=== PATIENT | male | born 1950 | race Caucasian/White ===

== ENCOUNTER → 2017-08-10 | Outpatient (CLI) | payer OTHER, MEDICARE | LOC: CAT 10:04 | DX: J44.9 Chronic obstructive pulmonary disease, unspecified (principal); J84.9 Interstitial pulmonary disease, unspecified ==

== ENCOUNTER 2017-10-30 16:12 | Inpatient (IN) | payer OTHER, MEDICARE ==
[~2017-10-30] VITALS: Ht 177.8 cm; Wt 142.4 kg
--- NOTE | ~2017-10-30 | HC ---
[facility] [place] [address] CONSULTATION Name: SHANNAN CALDERA Room #: 213-P ADM IN M.R.#: [id number] Admission: 10/30/17 Attend Phys: Dax Watkins MD Discharge: Date of : 48 Report #: [id number] THIS REPORT FOR: //name// CC: Nilda Watkins MD DATE OF SERVICE: 10/31/2017 REFERRING PROVIDER: Dr. Dax Watkins. CHIEF COMPLAINT: Shortness of breath and hypoxemia. HISTORY OF PRESENT ILLNESS: Our group was asked to see the patient in consultation while hospitalized at [facility], well known to me from previous office visits. He is a pleasant 67-year-old male with a history of some interstitial lung disease, shortness of breath, hypoxemia, which we have been evaluating. Labs have been significant for an elevated IgE. He has also had difficulty with renal insufficiency, managed by Dr. Barrios. Because of the multitude of problems and ongoing shortness of breath, he had been self-medicating with prednisone he had been getting from [place], taking about 20 mg 3 times a week. He notes improved symptoms typically with this. However, because of persistent symptoms and a multitude of abnormalities, went to [facility] for further evaluation. An exact etiology of his disease was not elicited. The patient did undergo a Rheumatology evaluation at the end of that stay and there was some concern for an inflammatory arthritis and films of the hands were requested. The patient does not have significant cough or sputum, but has significant exertional dyspnea. Noted yesterday desaturation very quickly with activity of oxygen saturations were about 76. The patient did note in the last month or so a decrease in his diuretic use at the request of his die holder. No fevers, chills or sweats. Some increased lower extremity edema noted. The patient has markedly increased dose of prednisone up to 60 mg daily with no significant improvement in symptoms. PAST MEDICAL HISTORY: 1. Chronic venous insufficiency. 2. Sleep apnea. 3. Chronic renal insufficiency. 4. Mild pulmonary fibrosis. 5. Hypertension. 6. Hyperlipidemia. 7. Chronic obstructive pulmonary disease. 8. Diastolic congestive heart failure. 9. Chronic renal insufficiency. [facility] [address] [place] [address] CONSULTATION Name: SHANNAN CALDERA Room #: 213-P [facility] IN M.R.#: [id number] Admission: 10/30/17 Attend Phys: Dax Watkins MD Discharge: Date of : 48 Report #: [id number] 10. Atrial fibrillation. MEDICATIONS: Include Tylenol, Bumex, bupropion, Temovate cream, Pradaxa, diltiazem, Advair, levalbuterol, Zaroxolyn, Remeron, Singulair, multivitamin, and prednisone. FAMILY HISTORY: Significant for cancer in his mother and father at 64. SOCIAL HISTORY: Ex-smoker, quitting in 1978. Occasional alcohol consumption, usually daily beverage, sometimes 2 or 3 per day. REVIEW OF SYSTEMS: CONSTITUTIONAL: No fever, chills, sweats. ENT: No upper respiratory congestion, some hoarseness. CARDIOVASCULAR: No chest pains, palpitations noted. Atrial fibrillation. GASTROINTESTINAL: No nausea, vomiting or abdominal pain. GENITOURINARY: No dysuria, no frequency or hematuria. INTEGUMENT: Denies any new rash. MUSCULOSKELETAL: Some increased lower extremity edema. PHYSICAL EXAMINATION: VITAL SIGNS: Afebrile, pulse 70s, respiratory rate 18, blood pressure 138/56, oxygen saturation 95% on 4 liters nasal cannula. GENERAL: This is an obese, cushingoid appearing elderly male, in no distress, resting comfortably in the chair. ENT: Clear oropharynx, Mallampati 3 airway. NECK: Supple, no lymphadenopathy. LUNGS: Diminished with inspiratory crackles noted [address] CARDIOVASCULAR: Heart was irregular. No murmurs noted. ABDOMEN: Obese, soft, nontender. EXTREMITIES: With 2+ lower extremity edema with chronic venous stasis changes noted. LABORATORY DATA: White blood cell count 7.8, hemoglobin 10, hematocrit 32, platelet count of 123. Sodium 143, potassium 3.1, chloride 101, bicarbonate 30, BUN 63, creatinine 1.7, glucose 125. ProBNP 1263. Arterial blood gas done on 4 liters showed pH 7.44, pCO2 of 42, pO2 of 95, bicarbonate 27. IMPRESSION: 1. Severe dyspnea, likely multifactorial. The patient has an ongoing pulmonary process with a combination of obstructive and restrictive lung disease, some of this related to interstitial findings. The patient also with a noted elevated IgE; however, the patient did not improve with systemic steroids at high dose arguing against a pulmonary process at this time. The patient does have complaints of arthritis in his hands and there was some concern at [facility] about inflammatory arthropathy. [facility] [address] [place] [address] CONSULTATION Name: SHANNAN CALDERA Room #: 213-P ADM IN [place].R.#: [id number] Admission: 10/30/17 Attend Phys: Dax Watkins MD Discharge: Date of : 48 Report #: [id number] 2. Diastolic congestive heart failure, acute on chronic. 3. Chronic lower extremity edema. 4. Chronic renal insufficiency. 5. Interstitial pulmonary fibrosis, unclear significance or etiology. 6. Obstructive sleep apnea. 7. Atrial fibrillation. 8. Chronic anticoagulation. 9. Chronic steroid use. SUGGESTIONS: 1. Decrease steroids. 2. Rheumatology consult. 3. Nephrology consult. 4. Continue with diuresis. 5. Continue with bronchodilators. 6. No antibiotics at this time. 7. Diuresis as tolerated. 8. We will continue to follow. Thank you for requesting our suggestions. <ELECTRONICALLY SIGNED> By: Dipesh Pickens MD 11/03/17 1453 1057 1457 Dipesh Pickens MD /nt
--- NOTE | ~2017-10-30 | EKG ---
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
--- NOTE | ~2017-10-30 | CATHLAB ---
[facility] [address] [place] [address] INVASIVE PROCEDURE REPORT Name: SHANNAN CALDERA Room #: 213-P DIS IN M.R.#: [id number] Admission: 10/30/17 Attend Phys: Dax Watkins MD Discharge: 11/04/17 Date of : 48 Date of Service: 11/08/17 1328 Report #: [id number] THIS REPORT FOR: //name// APPROVED REPORT Patient Details Patient Status: In-Patient Room #: The patient is a 67 year-old male Event Personnel Miguel Angel Gifford Pattern Assembler, Anastasiya Cowan RTR, KST OPERATOR Monitor, Franko Anguiano Penny, Wes RN Procedures Performed Art Access - R femoral artery* Joel Access - R femoral vein [id number] Initial Mod Sed Same Phys/QHP Gr5y [id number] Mod Sed Same Phys/QHP Ea [id number] Right and Left Heart Cath w/or w/o Coronarie [id number] [facility] Hemostasis with Manual pressure Procedure Narrative The patient was brought urgently to the Cardiac Catheterization Laboratory and was prepped and draped in a sterile manner. The Right Groin^ was infiltrated with 1% Lidocaine subcutaneous anesthesia. A PINNACLE 4FR Sheath #[id number] sheath was inserted into the RFA^. Coronary angiography was performed using coronary diagnostic catheters. The right coronary system was accessed and visualized with a JR 4 catheter. The left coronary system was accessed and visualized with a JL 4 catheter. The left ventricle was accessed and visualized with a Pigtail catheter. Left ventricular/Aortic Valve gradient assessed via catheter pullback. Hemostasis was obtained with manual pressure following sheath removal without any complications. The patient tolerated the procedure well and there were no complications associated with the procedure. There was no hematoma. Intraoperative Conscious Sedation Sedation start time: 13:32 Case end Time: 14:08 Versed 2 mg Fluoro Time: 13.42 minutes Dose: DAP 70193.90 cGycm2 1525 mGy Contrast Type and Amount: Omnipaque 50 ml Coronary Angiography The patient's coronary anatomy is right dominant. [facility] [address] [place] [address] INVASIVE PROCEDURE REPORT Name: SHANNAN CALDERA Room #: 213-P [facility] IN M.R.#: [id number] Admission: 10/30/17 Attend Phys: Dax Watkins MD Discharge: 11/04/17 Date of : 48 Date of Service: 11/08/17 1328 Report #: [id number] Diagnostic Cath Left Main Left main is normal origin and caliber bifurcates left anterior descending left circumflex. The left main is free of high-grade disease it is short in length LAD Moderate caliber type II vessel which courses anteriorly in the anterior interventricular sulcus. There is a trifurcation of the first septal and first diagonal which is a moderate to caliber vessel in the LAD proper. There is a mild narrowing but does not appear to be significant and is not flow-limiting. The LAD proper then continues towards the apex tapering rapidly as it terminates in the apex is a small bifurcating vessel Diagonal 1 Moderate caliber vessel without significant high-grade lesion is noted as it courses along the anterolateral wall Circumflex Large-caliber vessel of normal origin and gives rise to a early small marginal branch which is free of high-grade disease. A small second marginal branch in the lateral wall and a posterior wall marginal branch. It then terminates is a small-caliber vessel prior to reaching the crux of the heart no significant obstructive lesions OM1 Small-caliber no obstruction noted OM2 Small caliber short vessel without significant high-grade disease OM3 Moderate caliber vessel tortuous in its course without significant obstructive lesions noted Right Coronary Large-caliber vessel of normal origin courses in the AV groove posteriorly significant obstructive lesions. At the crux of the heart and gives rise to posterior descending artery and continues on as a posterior wall branch which are smaller in caliber R PDA Moderate caliber long vessel which courses in the posterior interventricular sulcus towards the apex and terminates as a smaller caliber vessel at the apex. No lesions are identified Left Ventriculography Left Ventriculography was not performed. Hemodynamics The right atrial mean pressure is 21 mmHg. The right ventricular pressure is 65/8 mmHg. The pulmonary artery pressure is 69/24 mmHg with a mean of 40 mmHg. The mean pulmonary capillary wedge pressure is 29 mmHg. The aortic pressure is 146/76 mmHg with a mean of 103 mmHg. The left ventricular pressure is 146/18 mmHg with a mean of mmHg. The left ventricular end diastolic pressure is 25 mmHg. The cardiac output using thermo method is 6.30 L/min. The cardiac index using thermo method is 2.49 L/min/m2. [facility] [address] [place] [address] INVASIVE PROCEDURE REPORT Name: SHANNAN CALDERA Room #: 213-P DIS IN M.R.#: [id number] Admission: 10/30/17 Attend Phys: Dax Watkins MD Discharge: 11/04/17 Date of : 48 Date of Service: 11/08/17 1328 Report #: [id number] Conclusion 1. Essentially normal coronary arteries 2. Abnormal hemodynamics with elevated pulmonary pressures and significant V wave identified Recommendations Cardiac Risk Reduction Program Would benefit from a vasodilatation study to assess pulmonary hypertension and the extent of reversibility <ELECTRONICALLY SIGNED> By: Miguel Angel Gifford MD 11/08/178 27 27 Miguel Angel Gifford MD /INF
--- NOTE | ~2017-10-30 | 2DMMODE ---
[facility] [address] [place] [address] 2 D/M-MODE ECHOCARDIOGRAM Name: SHANNAN CALDERA Room #: 213-P ADM IN M.R.#: [id number] Admission: 10/30/17 Attend Phys: Dax Watkins MD Discharge: Date of : 48 Date of Service: 10/31/17 1346 Report #: [id number] THIS REPORT FOR: //name// APPROVED REPORT Study performed: 10/31/2017 11:08:30 EXAM: Comprehensive 2D, Doppler, and color-flow Echocardiogram Patient Location: Bedside Room #: 213 Status: routine BSA: 2.82 HR: 72 bpm BP: 138/56 mmHg Other Information Study Quality: Adequate Indications Congestive Heart Failure COPD Atrial Fibrillation Dyspnea Hypertension/HDD 2D Dimensions RVDd: 43.70 mm LVEF(%): 43.97 (>50%) IVSd: 11.44 (7-11mm) LVOT Diam: 21.21 (18-24mm) LVDd: 54.60 mm PWd: 11.27 (7-11mm) Ascending Ao: 35.06 (22-36mm) LVDs: 42.59 (25-40mm) Aortic Root: 28.59 mm IVC: 28.00 mm Salmeron's LVEF: 43.97 % Volumes Left Atrial Volume (Systole) Single Plane 4CH: 71.07 mL Single Plane 2CH: 82.94 mL LA ESV Index: 29.00 mL/m2 Aortic Valve AoV Peak Kirt.: 1.72 m/s AO Peak Gr.: 11.80 mmHg LVOT Max P.15 mmHg LVOT Max V: 1.59 m/s PREM Vmax: 3.27 cm2 [facility] [place] [place] [address] 2 D/M-MODE ECHOCARDIOGRAM Name: SHANNAN CALDERA Room #: 213-P ADM IN M.R.#: [id number] Admission: 10/30/17 Attend Phys: Dax Watkins MD Discharge: Date of : 48 Date of Service: 10/31/17 1346 Report #: [id number] Mitral Valve MV Decel. Time: 207.23 ms MV E Max Kirt.: 1.46 m/s Pulmonary Valve PV Peak Kirt.: 1.48 m/s PV Peak Gr.: 8.76 mmHg Tricuspid Valve TR Peak Kirt.: 3.26 m/s RAP Estimate: 15.00 mmHg TR Peak Gr.: 42.46 mmHg PA Pressure: 58.00 mmHg Left Ventricle Left ventricle is borderline dilated. There is normal left ventricular wall thickness. The overall left ventricular systolic function appears normal. LVEF is 55-60%. This study is not technically sufficient to allow evaluation of the LV diastolic function due to atrial fibrillation. Right Ventricle Right ventricle is dilated. The right ventricular systolic function is normal. Atria Left atrium is at the upper limits of normal. Right atrium is moderately dilated. Aortic Valve The aortic valve is normal in structure. Trace aortic regurgitation. There is no aortic valvular stenosis. Mitral Valve The mitral valve is normal in structure. Mild to moderate mitral regurgitation. No evidence of mitral valve stenosis. Tricuspid Valve The tricuspid valve is normal in structure. Mild tricuspid regurgitation. PAP is estimated at 58 mmHg. Pulmonic Valve Pulmonic valve is not well visualized. There is no pulmonic valvular regurgitation noted. Great Vessels The aortic root is normal in size. IVC is dilated and collapses <50% with inspiration. [facility] [address] [place] [address] 2 D/M-MODE ECHOCARDIOGRAM Name: SHANNAN CALDERA Room #: 213-P [facility] IN M.R.#: [id number] Admission: 10/30/17 Attend Phys: Dax Watkins MD Discharge: Date of : 48 Date of Service: 10/31/17 1346 Report #: [id number] Pericardium There is no pericardial effusion. <Conclusion> The overall left ventricular systolic function appears normal. LVEF is 55-60%. Right ventricle is dilated. Both atria are dilated The aortic valve is normal in structure. Trace aortic regurgitation, no stenosis. The mitral valve is normal in structure. Mild to moderate mitral regurgitation. Mild tricuspid regurgitation. Pulmonary artery pressure estimated at 58 mmHg. There is no pericardial effusion. <ELECTRONICALLY SIGNED> By: Lion Lr MD, FAC 10/31/17 1346 1346 1346 Lion Lr MD, FAC /INF
--- NOTE | ~2017-10-30 | HC ---
[facility] [place] [address] CONSULTATION Name: SHANNAN CALDERA Room #: 213-P ADM IN M.R.#: [id number] Admission: 10/30/17 Attend Phys: Dax Watkins MD Discharge: Date of : 48 Report #: [id number] THIS REPORT FOR: //name// CC: Dipesh Watkins REASON FOR CONSULTATION: Elevated creatinine. REASON FOR PRESENTATION: Shortness of breath. HISTORY OF PRESENT ILLNESS: A 67-year-old with past medical history of chronic kidney disease. He is also known to have some sort of lung disease, presumed to be interstitial lung disease. He sees Dr. Barrios from [facility] and was told that his creatinine is anywhere from 1.5 to 1.7. He self-medicates himself. This includes taking prednisone that he is getting from [place]. He had some issues with shortness of breath over the last couple of weeks. He went up to [facility] during this period of time and was told that his kidney function had worsened. He used to 2 diuretics. They cut down the doses of his medications, and after which, he started to have significant shortness of breath. No fever or chills. He does have chronic lower extremity edema. He increased the dose of his prednisone; however, because of the worsening of the symptoms, he decided to present for further evaluation and management. He does seem to be at his baseline from the renal perspective. He has long-standing hypertension. He is not diabetic. No nonsteroidal anti-inflammatory medications. PAST MEDICAL HISTORY: 1. Hypertension. 2. Diastolic heart failure. 3. Chronic kidney disease. 4. Pulmonary fibrosis. 5. Obstructive sleep apnea. 6. Chronic venous stasis changes. MEDICATIONS: 1. Zaroxolyn. 2. Singulair. 3. Pradaxa. 4. Bumex. 5. Tylenol. FAMILY HISTORY: Significant for cancer. SOCIAL HISTORY: Ex-smoker. No drug or alcohol abuse. REVIEW OF SYSTEMS: GENERAL: No fever or chills. [facility] [address] [place] [address] CONSULTATION Name: SHANNAN CALDERA Room #: 213-[facility] IN M.R.#: [id number] Admission: 10/30/17 Attend Phys: Dax Watkins MD Discharge: Date of : 48 Report #: [id number] CARDIOVASCULAR: As per the history of present illness. PULMONARY: As per the history of present illness. GASTROINTESTINAL: No nausea or vomiting. GENITOURINARY: No frequency, no urgency. SKIN: Chronic venous stasis changes. PHYSICAL EXAMINATION: GENERAL: He is alert, oriented, in no apparent distress. VITAL SIGNS: Pulse is 70, respiratory rate is 18 and blood pressure is 130/56. HEAD AND NECK: No jugular venous distention. CHEST: Crackles bilaterally. CARDIOVASCULAR: Regular, with no rub. ABDOMEN: Soft, nontender. LOWER EXTREMITIES: With +2 edema with chronic venous stasis changes. LABORATORY DATA: Laboratory values reviewed. He does have low platelets. There is no eosinophilia. Chemistry revealed BUN of 59 and creatinine of 1.7. No U/A studies. No ultrasound of the kidneys available. Echo revealed severe pulmonary hypertension. ASSESSMENT, IMPRESSION AND PLAN: 1. Chronic kidney disease. 2. Severe pulmonary hypertension. 3. Ongoing lung issues with possible interstitial lung disease. 4. Thrombocytopenia. 5. We will initiate chronic kidney disease workup. 6. Need to address his pulmonary issues. 7. Continue with the current dose of diuretics, which is furosemide twice a day. 8. Watch electrolytes. 9. Once we get his pulmonary edema in a better shape, we can back off the diuretics. I explained for the patient that the lower extremity edema is related to chronic venous stasis issues. We will never be able to eliminate that completely. He will end up with some sort of lower extremity edema due to the venous stasis. 10. Severe pulmonary hypertension noted on the echo and I will defer the management of that to the yard hand. 11. When deemed reasonable, I will switch to p.o. diuretics. <ELECTRONICALLY SIGNED> By: Jamey Muir MD 11/04/17 1151 0941 1036 Jamey Muir MD /nt
--- NOTE | ~2017-10-30 | EKG ---
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
[2017-10-30 16:14] VITALS: BP 143/63
[2017-10-30 17:07] LABS: BE(vivo) 2.8 mmol/L (-2 to +3); HCO3 27.3 mmol/L (22.0-26.0); PCO2 41.6 mmHg (35.0-45.0); PO2 95.1 mmHg (80.0-100.0); pH 7.435 (7.360-7.450); sO2 97.4 % (92.0-98.0)
[2017-10-30 17:41] LABS: HEMATOCRIT 30.5 % (42.0-52.0); MCH 34.5 pg (26.0-34.0); MCHC 32.9 g/dL (28.0-37.0); MCV 104.9 fL (80.0-100.0); PLATELET COUNT 115 thou/uL (150-400); RBC 2.91 mil/uL (4.50-6.00); RDW 16.4 % (10.5-14.5); WBC 9.9 thou/uL (4.0-11.0)
[2017-10-30 17:53] LABS: ANION GAP 14 mmol/L (7-16); BUN 63 mg/dL (7-18); CALCIUM 9.3 mg/dL (8.5-10.1); CHLORIDE 99 mmol/L (98-107); CO2 27 mmol/L (21-32); CREATININE 1.5 mg/dL (0.7-1.3); GLUCOSE 139 mg/dL (74-106); POTASSIUM 3.8 mmol/L (3.5-5.1); SODIUM 140 mmol/L (136-145)
[2017-10-30 18:01] LABS: TROPONIN-I < 0.04 ng/mL (<0.06)
[2017-10-30 18:10] LABS: ABSOLUTE NEUTROPHILS 9.2 thou/uL (1.4-8.2)
[2017-10-30 18:11] LABS: ANISOCYTOSIS 1+; POLYCHROMASIA 1+
[2017-10-31 05:56] LABS: HEMATOCRIT 31.6 % (42.0-52.0); HEMOGLOBIN 10.3 gm/dL (14.0-18.0); MCH 33.7 pg (26.0-34.0); MCHC 32.8 g/dL (28.0-37.0); RBC 3.07 mil/uL (4.50-6.00); RDW 16.5 % (10.5-14.5); WBC 7.8 thou/uL (4.0-11.0)
[2017-10-31 06:38] LABS: CALCIUM 9.5 mg/dL (8.5-10.1); CREATININE 1.7 mg/dL (0.7-1.3); POTASSIUM 3.1 mmol/L (3.5-5.1)
[2017-10-31 07:12] VITALS: BP 138/56
[2017-10-31 08:25] VITALS: BP 138/56
[2017-10-31 08:30] VITALS: BP 166/77
[2017-10-31] MEDS ORDERED: BUPROPION XL300 MG PO (09:10)
[2017-10-31] MEDS ORDERED: ZOCOR40 MG PO (09:10)
[2017-10-31] MEDS ORDERED: KLOR-CON M2020 MEQ PO (09:10)
[2017-10-31] MEDS ORDERED: PRADAXA150 MG PO (09:11)
[2017-10-31] MEDS ORDERED: XOPENEX0.63 MG/3 INH (09:11)
[2017-10-31] MEDS ORDERED: CARDIZEM CD120 MG PO (09:12)
[2017-10-31] MEDS ORDERED: ULORIC40 MG PO (09:12)
[2017-10-31] MEDS ORDERED: SINGULAIR 10 MG10 M1 PO (09:12)
[2017-10-31] MEDS ORDERED: REMERON15 MG PO (09:13)
[2017-10-31] MEDS ORDERED: CENTRUM SILVER1 EAC4 PO (09:13)
[2017-10-31] MEDS ORDERED: PREDNISONE 20 M20 M1 PO (09:14)
[2017-10-31] MEDS ORDERED: METOLAZONE 2.52.5 M1 PO (09:14)
[2017-10-31 11:49] VITALS: BP 147/76
[2017-10-31 15:20] VITALS: BP 147/71
[2017-10-31 19:29] VITALS: BP 154/70
[2017-11-01 03:55] VITALS: BP 172/86
[2017-11-01 04:26] LABS: BASOPHILS 0.1 % (0.0-2.0); EOSINOPHILS 0.1 % (0.0-3.0); HEMATOCRIT 28.5 % (42.0-52.0); HEMOGLOBIN 9.5 gm/dL (14.0-18.0); LYMPHOCYTES 4.4 % (24.0-44.0); MCH 34.2 pg (26.0-34.0); MCHC 33.4 g/dL (28.0-37.0); MCV 102.2 fL (80.0-100.0); MONOCYTES 3.1 % (1.0-8.0); PLATELET COUNT 91 thou/uL (150-400); POLYS 92.3 % (36.0-66.0); RBC 2.79 mil/uL (4.50-6.00); RDW 16.2 % (10.5-14.5); WBC 4.3 thou/uL (4.0-11.0)
[2017-11-01 04:42] LABS: CALCIUM 9.4 mg/dL (8.5-10.1); CREATININE 1.7 mg/dL (0.7-1.3); POTASSIUM 3.6 mmol/L (3.5-5.1)
[2017-11-01 08:35] VITALS: BP 156/77
[2017-11-01 08:50] VITALS: BP 156/77
[2017-11-01 11:36] VITALS: BP 139/90
[2017-11-01 15:12] VITALS: BP 173/65
[2017-11-01 19:45] VITALS: BP 155/71
[2017-11-02 00:40] VITALS: BP 153/84
[2017-11-02 03:18] LABS: ABSOLUTE NEUTROPHILS 3.7 thou/uL (1.4-8.2); BASOPHILS 0.2 % (0.0-2.0); EOSINOPHILS 0.3 % (0.0-3.0); HEMATOCRIT 28.6 % (42.0-52.0); HEMOGLOBIN 9.5 gm/dL (14.0-18.0); MCH 33.8 pg (26.0-34.0); MCHC 33.3 g/dL (28.0-37.0); MCV 101.6 fL (80.0-100.0); PLATELET COUNT 95 thou/uL (150-400); POLYS 89.5 % (36.0-66.0); RBC 2.81 mil/uL (4.50-6.00); RDW 16.2 % (10.5-14.5); WBC 4.1 thou/uL (4.0-11.0)
[2017-11-02 03:28] LABS: ALBUMIN 3.5 g/dL (3.4-5.0); CALCIUM 9.5 mg/dL (8.5-10.1); CREATININE 1.7 mg/dL (0.7-1.3); PHOSPHORUS 5.3 mg/dL (2.5-4.9); POTASSIUM 3.8 mmol/L (3.5-5.1)
[2017-11-02 04:30] VITALS: BP 153/82
[2017-11-02 07:05] VITALS: BP 159/99
[2017-11-02 10:08] LABS: COMPLEMENT-C3 151 mg/dL (82-167); COMPLEMENT-C4 24 mg/dL (14-44)
[2017-11-02 10:40] LABS: URINE BILIRUBIN NEGATIVE (Negative); URINE BLOOD NEGATIVE (Negative); URINE CLARITY CLEAR; URINE COLOR YELLOW; URINE GLUCOSE-RANDOM* NEGATIVE (Negative); URINE KETONES NEGATIVE (Negative); URINE LEUKOCYTES NEGATIVE (Negative); URINE NITRITE NEGATIVE (Negative); URINE PROTEIN (DIPSTICK) NEGATIVE (Negative)
[2017-11-02 10:44] LABS: URINE CREATININE-RANDOM* 62.6 mg/dL; URINE PROTEIN-RANDOM* 10.7 mg/dL (<11.9)
[2017-11-02 11:50] VITALS: BP 149/69
[2017-11-02 15:40] VITALS: BP 139/61
[2017-11-02 19:42] VITALS: BP 146/68
[2017-11-03] VITALS (12 sets, daily range): BP systolic 115–158; BP diastolic 49–82
[2017-11-03 04:08] LABS: ABSOLUTE NEUTROPHILS 6.5 thou/uL (1.4-8.2); BASOPHILS 0.3 % (0.0-2.0); EOSINOPHILS 0.1 % (0.0-3.0); HEMATOCRIT 30.5 % (42.0-52.0); HEMOGLOBIN 10.2 gm/dL (14.0-18.0); LYMPHOCYTES 2.9 % (24.0-44.0); MCH 34.2 pg (26.0-34.0); MCHC 33.4 g/dL (28.0-37.0); MCV 102.5 fL (80.0-100.0); MONOCYTES 4.7 % (1.0-8.0); PLATELET COUNT 86 thou/uL (150-400); RBC 2.97 mil/uL (4.50-6.00); WBC 7.1 thou/uL (4.0-11.0)
[2017-11-03 04:23] LABS: ALBUMIN 3.5 g/dL (3.4-5.0); CALCIUM 9.4 mg/dL (8.5-10.1); CREATININE 1.5 mg/dL (0.7-1.3); PHOSPHORUS 5.2 mg/dL (2.5-4.9); POTASSIUM 3.6 mmol/L (3.5-5.1)
[2017-11-04 00:04] VITALS: BP 168/88
[2017-11-04 04:49] LABS: ABSOLUTE NEUTROPHILS 4.1 thou/uL (1.4-8.2); BASOPHILS 0.2 % (0.0-2.0); EOSINOPHILS 0.2 % (0.0-3.0); HEMATOCRIT 27.5 % (42.0-52.0); HEMOGLOBIN 9.2 gm/dL (14.0-18.0); LYMPHOCYTES 3.8 % (24.0-44.0); MCHC 33.4 g/dL (28.0-37.0); MCV 101.7 fL (80.0-100.0); MONOCYTES 4.3 % (1.0-8.0); PLATELET COUNT 82 thou/uL (150-400); POLYS 91.5 % (36.0-66.0); RBC 2.71 mil/uL (4.50-6.00); WBC 4.4 thou/uL (4.0-11.0)
[2017-11-04 04:59] VITALS: BP 139/78
[2017-11-04 05:02] LABS: ALBUMIN 3.2 g/dL (3.4-5.0); CALCIUM 9.2 mg/dL (8.5-10.1); CREATININE 1.4 mg/dL (0.7-1.3); PHOSPHORUS 4.8 mg/dL (2.5-4.9); POTASSIUM 4.1 mmol/L (3.5-5.1)
[2017-11-04 07:25] VITALS: BP 152/71
[2017-11-04 11:35] VITALS: BP 149/60
[2017-11-04] MEDS ORDERED: K-DUR 20 MEQ T20 MEQ PO (13:05)
[2017-11-04] MEDS ORDERED: DEMADEX 2020 MG/1 TA PO (13:05)
[2017-11-04 13:58] VITALS: BP 149/60
[2017-11-06 10:11] LABS: ANA INTERPRETATION Negative (Negative)
== END 2017-11-04 14:25 | disposition home or self-care (01) | DRG 286 ==
LOC: ER 16:12 → 2N 18:59 → EROBS 18:59 → 2N 10-31 08:31
PROVIDERS: Family Medicine; Hospitalist; Internal Medicine Rheumatology; Nurse Practitioner
PROC: 4A023N8 Measurement of Cardiac Sampling and Pressure, Bilateral, Percutaneous Approach (ICD-10-PCS; principal; 2017-11-03)
PROC: B2111ZZ Fluoroscopy of Multiple Coronary Arteries using Low Osmolar Contrast (ICD-10-PCS; principal; 2017-11-03)
DX: I13.0 Hypertensive heart and chronic kidney disease with heart failure and stage 1 through stage 4 chronic kidney disease, or unspecified chronic kidney disease (principal); I50.33 Acute on chronic diastolic (congestive) heart failure; J96.21 Acute and chronic respiratory failure with hypoxia; J81.0 Acute pulmonary edema; J81.1 Chronic pulmonary edema; Z68.42 Body mass index [BMI] 45.0-49.9, adult; J44.9 Chronic obstructive pulmonary disease, unspecified; E78.5 Hyperlipidemia, unspecified; I48.91 Unspecified atrial fibrillation; J84.10 Pulmonary fibrosis, unspecified; G47.33 Obstructive sleep apnea (adult) (pediatric); I27.20 Pulmonary hypertension, unspecified; D69.6 Thrombocytopenia, unspecified; E11.22 Type 2 diabetes mellitus with diabetic chronic kidney disease; E66.01 Morbid (severe) obesity due to excess calories; I87.8 Other specified disorders of veins; N18.3 Chronic kidney disease, stage 3 (moderate); E78.00 Pure hypercholesterolemia, unspecified; Z88.6 Allergy status to analgesic agent; Z88.8 Allergy status to other drugs, medicaments and biological substances; Z79.01 Long term (current) use of anticoagulants; Z87.891 Personal history of nicotine dependence; Z79.52 Long term (current) use of systemic steroids; Z79.899 Other long term (current) drug therapy; Z99.81 Dependence on supplemental oxygen
CPT/HCPCS: 10081

== ENCOUNTER 2017-11-20 14:23 | Emergency (ER) | payer OTHER, MEDICARE ==
[~2017-11-20] VITALS: Ht 190.5 cm; Wt 158.8 kg
--- NOTE | ~2017-11-20 | EKG ---
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: [facility] : 1950 Requested By: Gold Gutiérrez Order Number: [id number] MD: Lion Lr Measurements Intervals [place] Rate: 59 P: 0 MS: 64 QRS: 6 QRSD: 104 T: 142 QT: 422 QTc: 418 Interpretive Statements Atrial fibrillation Nonspecific ST and T wave abnormality Compared to ECG 10/31/2017 10:53:42 Nonspecific change in the ST and T-wave segments Electronically Signed On 11-21-2017 19:12:07 CDT by Lion Lr [email or web address] <ELECTRONICALLY SIGNED> By: Lion Lr MD, [facility] 11/21/171911 10 10 Lion Lr MD, FACC /EPI
[~2017-11-20 14:23] MED LIST: BUPROPION XL300 MG PO; CARDIZEM CD120 MG PO; CENTRUM SILVER1 EAC4 PO; DEMADEX 2020 MG/1 TA PO; K-DUR 20 MEQ T20 MEQ PO; KLOR-CON M2020 MEQ PO; METOLAZONE 2.52.5 M1 PO; PRADAXA150 MG PO; PREDNISONE 20 M20 M1 PO; REMERON15 MG PO; SINGULAIR 10 MG10 M1 PO; ULORIC40 MG PO; XOPENEX0.63 MG/3 INH; ZOCOR40 MG PO
[2017-11-20 15:23] LABS: ABSOLUTE NEUTROPHILS 2.8 thou/uL (1.4-8.2); BASOPHILS 0.3 % (0.0-2.0); EOSINOPHILS 1.5 % (0.0-3.0); HEMATOCRIT 27.6 % (42.0-52.0); HEMOGLOBIN 9.2 gm/dL (14.0-18.0); MCHC 33.2 g/dL (28.0-37.0); MCV 102.3 fL (80.0-100.0); MONOCYTES 8.9 % (1.0-8.0); POLYS 79.3 % (36.0-66.0); WBC 3.6 thou/uL (4.0-11.0)
[2017-11-20 15:27] LABS: ANION GAP 11 mmol/L (7-16); BUN 27 mg/dL (7-18); CHLORIDE 101 mmol/L (98-107); CO2 27 mmol/L (21-32); CREATININE 1.3 mg/dL (0.7-1.3); GLUCOSE 90 mg/dL (74-106); POTASSIUM 3.8 mmol/L (3.5-5.1); SODIUM 139 mmol/L (136-145)
[2017-11-20 15:36] LABS: TROPONIN-I < 0.04 ng/mL (<0.06)
[2017-11-20 15:41] LABS: LARGE PLATELETS RARE; PLATELET COUNT 81 thou/uL (150-400)
[2017-11-20 18:26] VITALS: BP 127/53
== END 2017-11-20 18:27 | disposition home or self-care (01) ==
LOC: ER 14:23
PROVIDERS: Emergency Medicine
DX: I27.20 Pulmonary hypertension, unspecified (principal); R06.00 Dyspnea, unspecified; J44.9 Chronic obstructive pulmonary disease, unspecified; E78.5 Hyperlipidemia, unspecified; I48.91 Unspecified atrial fibrillation; Z87.891 Personal history of nicotine dependence; Z88.5 Allergy status to narcotic agent; Z88.6 Allergy status to analgesic agent; Z88.8 Allergy status to other drugs, medicaments and biological substances

== ENCOUNTER → 2018-01-16 | Outpatient (CLI) | payer OTHER, MEDICARE ==
[2018-01-16 12:28] LABS: BE(vivo) 0.6 mmol/L (-2 to +3); HCO3 25.1 mmol/L (22.0-26.0); PCO2 39.8 mmHg (35.0-45.0); PO2 101.5 mmHg (80.0-100.0); pH 7.418 (7.360-7.450); sO2 97.7 % (92.0-98.0)
== END ==
LOC: PUL 11:36
PROVIDERS: Internal Medicine Pulmonary Disease
DX: J44.9 Chronic obstructive pulmonary disease, unspecified (principal)